=== PATIENT | male | born 1985 | race Caucasian/White ===

== ENCOUNTER 2016-10-13 09:35 | Emergency (ER) | payer OTHER ==
[~2016-10-13] VITALS: Wt 105.0 kg
[2016-10-13] MEDS ORDERED: QUETIAPINE 100 MG TAB PO ONE (10:00)
[2016-10-13 10:37] LABS: ADD SCAN DIFF NO
[2016-10-13] MEDS ORDERED: LAMO25TA PO (10:39)
[2016-10-13 10:41] LABS: BASOPHILS % 0.3 % (0.0-2.0); EOSINOPHILS # 0.1 10^3/ul (0.0-0.5); EOSINOPHILS % 1.2 % (0.0-7.0); HEMATOCRIT 43.3 % (42.0-52.0); HEMOGLOBIN 14.2 g/dl (14.0-18.0); LYMPHOCYTES # 2.9 10^3/ul (0.8-2.9); MEAN CORPUSCULAR HEMOGLOBIN 30.6 pg (29.0-33.0); MEAN CORPUSCULAR HGB CONC 32.8 g/dl (32.0-37.0); MEAN CORPUSCULAR VOLUME 93.3 fl (82.0-101.0); MEAN PLATELET VOLUME 10.9 fl (7.4-10.4); MONOCYTE # 1.1 10^3/ul (0.3-0.9); MONOCYTES % 14.9 % (0.0-11.0); NEUTROPHIL # 3.3 10^3/ul (1.6-7.5); NEUTROPHILS % 44.5 % (39.0-77.0); PLATELET COUNT 195 10^3/UL (140-415); RED BLOOD COUNT 4.64 10^6/ul (4.70-6.10); RED CELL DISTRIBUTION WIDTH 14.7 % (11.5-14.5); WHITE BLOOD COUNT 7.5 10^3/ul (4.8-10.8)
[2016-10-13] MEDS ORDERED: VALP250C PO ×2 (10:41)
[2016-10-13] MEDS ORDERED: PALI1.5T PO (10:42)
[2016-10-13] MEDS ORDERED: ESCI10TA PO (10:42)
--- NOTE | 2016-10-13 10:46 | ERA ---
ER Documentation Chief Complaint Date/Time DATE: 10/13/16 TIME: 10:44 Chief Complaint father states suicidal ideation today no active plan. no drugs or etoh HPI 31-year-old male presents to the emergency department by ambulance complaining of suicidal ideation. Patient has a history of schizophrenia and states he has been compliant with his medications. However, recently, he has required multiple hospitalizations. He states that recently has been having auditory and command hallucinations which are making him feel suicidal. He is not able to tell me any specific plan at this current time. He denies visual hallucinations. Patient has no medical complaints at this time. I have reviewed the contemporary or modern dancer pre-hospital care. Pre-hospital vital signs were reviewed. Pre-hospital diagnostic tests were reviewed. ROS All systems reviewed and are negative except as per history of present illness. Medications Home Meds Reported Medications Escitalopram Oxalate* (Lexapro*) 10 Mg Tablet, 10 MG PO DAILY, #30 TAB 10/13/16 Paliperidone (Invega) 1.5 Mg Tab.er.24, 9 MG PO DAILY, TAB 10/13/16 Valproic Acid* (Depakene*) 250 Mg Capsule, 1500 MG PO QHS, #240 CAP 10/13/16 Valproic Acid* (Depakene*) 250 Mg Capsule, 1000 MG PO QAM, #180 CAP 10/13/16 Lamotrigine* (Lamotrigine*) 25 Mg Tablet, 25 MG PO BID, TAB 10/13/16 Allergies Allergies: Coded Allergies: No Known Allergy (Unverified , 10/13/16) PMhx/Soc Medical and Surgical Hx: pt denies Surgical Hx Hx Miscellaneous Medical Probl: Yes (DEPRESSION ) Hx Alcohol Use: No Hx Substance Use: No Hx Tobacco Use: No Smoking Status: Unknown if ever smoked FmHx Noncontributory for chief complaint Physical Exam Vitals Vital Signs Date Time Temp Pulse Resp B/P Pulse Ox O2 Delivery O2 Flow Rate FiO2 10/13/16 11:26 77 20 107/60 96 Room Air 10/13/16 09:42 98.5 78 20 119/78 98 Physical Exam GENERAL: The patient is well developed and appropriate for usual state of health in no apparent distress HEENT: Pupils equal, round, and reactive to light. EOMI. There is no scleral icterus. NECK: C-spine is soft and supple, there is no meningismus. There is no cervical lymphadenopathy. LUNGS: Clear to auscultation bilaterally. There are no rales, wheezes or rhonchi. HEART: Regular rate and rhythm, no murmurs, clicks, rubs or gallops. ABDOMEN: Soft, non-tender, non-distended. There are bowel sounds in all four quadrants. No rebound or guarding. EXTREMITIES: There is no peripheral cyanosis or edema. No focal swelling or erythema. NEURO: The patient moves all four extremities with 5/5 strength. Cranial nerves II - XII are intact. Normal gait. Alert and oriented SKIN: There is no apparent rash or petechiae. HEME/LYMPHATIC: There is no evidence of excessive bruising or lymphedema. PSYCHIATRIC: Patient is awake alert and oriented. He has some psychomotor retardation. He has a somewhat flattened affect. He is expressing auditory hallucinations and suicidal ideations with no definitive plan at this current time. He does not appear to be agitated. Result Diagram: 10/13/16 1012 10/13/16 1012 Results 24 hrs Laboratory Tests Test 10/13/16 10:12 10/13/16 10:25 White Blood Count 7.510^3/ul Red Blood Count 4.6410^6/ul Hemoglobin 14.2g/dl Hematocrit 43.3% Mean Corpuscular Volume 93.3fl Mean Corpuscular Hemoglobin 30.6pg Mean Corpuscular Hemoglobin Concent 32.8g/dl Red Cell Distribution Width 14.7% Platelet Count 00353^3/UL Mean Platelet Volume 10.9fl Neutrophils % 44.5% Lymphocytes % 39.0% Monocytes % 14.9% Eosinophils % 1.2% Basophils % 0.3% Nucleated Red Blood Cells % 0.0/100WBC Neutrophils # 3.310^3/ul Lymphocytes # 2.910^3/ul Monocytes # 1.110^3/ul Eosinophils # 0.110^3/ul Basophils # 0.010^3/ul Nucleated Red Blood Cells # 0.010^3/ul Sodium Level 142mmol/L Potassium Level 4.1mmol/L Chloride Level 107mmol/L Carbon Dioxide Level 28mmol/L Anion Gap 11 Blood Urea Nitrogen 10mg/dl Creatinine 0.83mg/dl Glucose Level 121mg/dl Calcium Level 8.7mg/dl Total Bilirubin 0.2mg/dl Direct Bilirubin 0.00mg/dl Indirect Bilirubin 0.2mg/dl Aspartate Amino Transf (AST/SGOT) 21IU/L Alanine Aminotransferase (ALT/SGPT) 29IU/L Alkaline Phosphatase 91IU/L Total Protein 6.9g/dl Albumin 3.9g/dl Globulin 3.00g/dl Albumin/Globulin Ratio 1.30 Salicylates Level < 1.0mg/dl Acetaminophen Level < 10.0ug/ml Ethyl Alcohol Level < 10.0mg/dl Urine Color LT. YELLOW Urine Clarity CLEAR Urine pH 6.0 Urine Specific [place] 1.015 Urine Ketones NEGATIVE Urine Nitrite NEGATIVE Urine Bilirubin NEGATIVE Urine Urobilinogen 0.2 E.U./dL Urine Leukocyte Esterase NEGATIVE Urine Hemoglobin NEGATIVE Urine Glucose NEGATIVE% Urine Total Protein NEGATIVE Urine Opiates Screen NEGATIVE Urine Barbiturates NEGATIVE Urine Amphetamines Screen NEGATIVE Urine Benzodiazepines Screen NEGATIVE Urine Cocaine Screen NEGATIVE Urine Cannabinoids NEGATIVE Current Medications Medications (Trade) Dose Ordered Sig/Pao Route PRN Reason Start Time Stop Time Status Last Admin Dose Admin Quetiapine Fumarate (Seroquel) 100 mg ONCE ONCE PO 10/13/16 10:00 10/13/16 10:01 DC 10/13/16 10:42 Procedures/MDM Patient was taken to a room, seen and evaluated. Comfort measures were initiated. Diagnostic tests were ordered and reviewed. CONSULTATION: [facility] was requested, manager social was requested. Tele-psychiatry recommended hospitalization. REEVALUATION: Patient remained comfortable and accepting voluntary hospitalization. MEDICAL DECISION MAKING: Patient presents with symptomatology consistent with the decompensation of previously diagnosed psychiatric disease. Based on history, physical exam and appropriate lab tests, I appreciate no evidence of significant life threatening injury or illness that precludes psychiatric hospitalization. Patient is thus "medically clear" for psychiatric admission. In regards to the psychiatric complaints, this patient has clear evidence of high risk psychiatric symptoms with significant risk for decompensation, thus requiring an involuntary hold and hospitalization for stabilization. Departure Diagnosis: Primary Impression: Schizophrenia Additional Impression: Suicidal ideation DOMINIQUE POLK Oct 13, 2016 10:45
[2016-10-13 10:48] LABS: ADD UMIC NO; URINE BILIRUBIN (Dip) NEGATIVE (NEGATIVE); URINE BLOOD (Dip) NEGATIVE (NEGATIVE); URINE COLOR LT. YELLOW (YELLOW); URINE GLUCOSE (Dip) NEGATIVE (NEGATIVE); URINE KETONES (Dip) NEGATIVE (NEGATIVE); URINE LEUKOCYTE ESTERASE (Dip) NEGATIVE (NEGATIVE); URINE NITRITE (Dip) NEGATIVE (NEGATIVE); URINE TOTAL PROTEIN (Dip) NEGATIVE (NEGATIVE); URINE UROBILINOGEN (Dip) 0.2 E.U./dL (0.1-1.0)
[2016-10-13 10:55] LABS: ALANINE AMINOTRANSFERASE 29 IU/L (13-69); ALBUMIN 3.9 g/dl (3.3-4.9); ALKALINE PHOSPHATASE 91 IU/L (42-121); ANION GAP 11 (8-16); ASPARTATE AMINO TRANSFERASE 21 IU/L (15-46); BILIRUBIN,INDIRECT 0.2 mg/dl (0-1.1); BILIRUBIN,TOTAL 0.2 mg/dl (0.2-1.3); BLOOD UREA NITROGEN 10 mg/dl (7-20); CALCIUM 8.7 mg/dl (8.4-10.2); CARBON DIOXIDE 28 mmol/L (21-31); CHLORIDE 107 mmol/L (97-110); CREATININE 0.83 mg/dl (0.61-1.24); GLUCOSE 121 mg/dl (70-220); POTASSIUM 4.1 mmol/L (3.5-5.1); SODIUM 142 mmol/L (135-144); TOTAL PROTEIN 6.9 g/dl (6.1-8.1)
[2016-10-13 11:14] LABS: BARBITURATES NEGATIVE (NEGATIVE); BENZODIAZEPINES NEGATIVE (NEGATIVE); CANNABINOIDS NEGATIVE (NEGATIVE); COCAINE NEGATIVE (NEGATIVE); OPIATES NEGATIVE (NEGATIVE)
[2016-10-13 11:32] LABS: ACETAMINOPHEN < 10.0 ug/ml (10.0-30.0); SALICYLATE < 1.0 mg/dl (5.0-30.0)
[2016-10-13 11:57] LABS: ETHANOL < 10.0 mg/dl
--- NOTE | 2016-10-13 12:24 | PSY ---
Date/Time of Note Date/Time of Note DATE: 10/13/16 TIME: 12:21 Psychiatric Subjective Eval Consent Pt consented to telemedicine: Yes Subjective Evaluation Patient location: emergency Chief Complaint: father states suicidal ideation today no active plan. no drugs or etoh History of present illness 31 yo single disabled male BIB EMS after he reproted command AH and SI. Pt says he is still suicidal and depressed because of the voices which are telling him to kill himself. He is apranoid and anxious.He is meds compliant. Last inpt was 3 weeks ago. Past psychiatric history multiple inpt Hospitalization: Suicidal Attempt(s) Family History denies Medical history as per record Allergies: Coded Allergies: No Known Allergy (Unverified , 10/13/16) Substance Abuse Substance use: No known substance abuse Social History Marital status: single Level of education: spec ed DPA/Conservatorship: No Occupation/[employer]: on [employer], lives with parents Psychiatric Objective Eval Physical Examination: Sleep: Insomnia Appetite: Decreased Energy: Decreased Interest: Decreased Mental Status Examination: Appearance: Groomed Eye Contact: Good Psychomotor Activity: Normal Behavior: Cooperative Speech: Clear AFFECT: Constricted Mood: Depressed Though Process: Linear Thought Content: Hallucinations Suicidal: Yes Homicidal: No On 72 hour hold: No Orientation: x4 Cognition: Alert Insight: Impared Judgement: Impared Laboratory Results Laboratory Tests Test 10/13/16 10:12 10/13/16 10:25 White Blood Count 7.510^3/ul Red Blood Count 4.6410^6/ul Hemoglobin 14.2g/dl Hematocrit 43.3% Mean Corpuscular Volume 93.3fl Mean Corpuscular Hemoglobin 30.6pg Mean Corpuscular Hemoglobin Concent 32.8g/dl Red Cell Distribution Width 14.7% Platelet Count 53918^3/UL Mean Platelet Volume 10.9fl Neutrophils % 44.5% Lymphocytes % 39.0% Monocytes % 14.9% Eosinophils % 1.2% Basophils % 0.3% Nucleated Red Blood Cells % 0.0/100WBC Neutrophils # 3.310^3/ul Lymphocytes # 2.910^3/ul Monocytes # 1.110^3/ul Eosinophils # 0.110^3/ul Basophils # 0.010^3/ul Nucleated Red Blood Cells # 0.010^3/ul Sodium Level 142mmol/L Potassium Level 4.1mmol/L Chloride Level 107mmol/L Carbon Dioxide Level 28mmol/L Anion Gap 11 Blood Urea Nitrogen 10mg/dl Creatinine 0.83mg/dl Glucose Level 121mg/dl Calcium Level 8.7mg/dl Total Bilirubin 0.2mg/dl Direct Bilirubin 0.00mg/dl Indirect Bilirubin 0.2mg/dl Aspartate Amino Transf (AST/SGOT) 21IU/L Alanine Aminotransferase (ALT/SGPT) 29IU/L Alkaline Phosphatase 91IU/L Total Protein 6.9g/dl Albumin 3.9g/dl Globulin 3.00g/dl Albumin/Globulin Ratio 1.30 Salicylates Level < 1.0mg/dl Acetaminophen Level < 10.0ug/ml Ethyl Alcohol Level < 10.0mg/dl Urine Color LT. YELLOW Urine Clarity CLEAR Urine pH 6.0 Urine Specific [place] 1.015 Urine Ketones NEGATIVE Urine Nitrite NEGATIVE Urine Bilirubin NEGATIVE Urine Urobilinogen 0.2 E.U./dL Urine Leukocyte Esterase NEGATIVE Urine Hemoglobin NEGATIVE Urine Glucose NEGATIVE% Urine Total Protein NEGATIVE Urine Opiates Screen NEGATIVE Urine Barbiturates NEGATIVE Urine Amphetamines Screen NEGATIVE Urine Benzodiazepines Screen NEGATIVE Urine Cocaine Screen NEGATIVE Urine Cannabinoids NEGATIVE Assessment and Plan Assessment/Diagnosis [place] I: CRONIC PARANOID SCHIZOPHRENIA [place] II: DEFERED [place] III: NAD [place] IV: MODERATE [place] V: GAF 25 Recommendation/Plan Medication Management PLEASE CONTINUE CURRENT MEDS WHILE IN ED WAITING FOR THE TRANSFER. AGREE WITH CURRENT MEDS REGIME. Psychotherapy DEFER TO INPT Follow-up/Disposition PLEASE TRANSFER TO INPT PSYCH FOR DTS. PT IS WILLING TO ACCEPT INPT CARE VOLUNTARY. [id number] Recommendation: PHIL STOCKTON MD Oct 13, 2016 12:24
[2016-10-13 18:39] VITALS: BP 106/61; PULSE 68; RESP 18
== END 2016-10-13 19:25 ==
LOC: E/R 09:35
DX: F20.9 Schizophrenia, unspecified (principal); R45.851 Suicidal ideations
CPT/HCPCS: 36415; 80053; 80306; 80307; 81003; 85025